=== PATIENT | female | born 1965 | race Caucasian/White ===

== ENCOUNTER 2020-03-26 18:22 | Inpatient (IN) | payer MEDICAID ==
[~2020-03-26] VITALS: Ht 157.5 cm; Wt 106.6 kg
[2020-03-26 18:22] VITALS: BP 82/33
[2020-03-26] MEDS ORDERED: NACL 0.9% 2,000 ML IV ONE (18:40)
--- NOTE | 2020-03-26 18:50 | NUR ---
EKG PERFORMED AT BEDSIDE
--- NOTE | 2020-03-26 18:53 | NUR ---
NOTED HER SUGAR OVER 400, SUDDEN LOSS OF SIGHT WITH GENERAL FATIGUE
[2020-03-26 19:06] LABS: BASOPHILS # (AUTO) 0.1 K/uL (0.00-0.22); BASOPHILS % (AUTO) 1.6 % (0.0-2.0); EOSINOPHILS # (AUTO) 0.1 K/uL (0-0.4); EOSINOPHILS % (AUTO) 0.7 % (0.0-4.0); HEMATOCRIT 44.2 % (36-48); HEMOGLOBIN 15.1 g/dL (12.0-16.0); LYMPHOCYTES # (AUTO) 2.7 K/uL (2.5-16.5); LYMPHOCYTES % (AUTO) 28.7 % (20.5-51.1); MEAN CORPUSCULAR HEMOGLOBIN 31 pg (27-31); MEAN CORPUSCULAR HGB CONC 34 g/dL (33-37); MEAN CORPUSCULAR VOLUME 90.2 fL (80-94); MONOCYTES # (AUTO) 0.7 K/uL (0.8-1.0); MONOCYTES % (AUTO) 6.9 % (1.7-9.3); NEUTROPHILS # (AUTO) 5.9 K/uL (1.8-7.7); NEUTROPHILS % (AUTO) 62.1 % (42.2-75.2); PLATELET COUNT (AUTO) 262 K/uL (140-450); RED CELL DISTRIBUTION WIDTH 14.7 % (11.6-13.7); WHITE BLOOD COUNT (AUTO) 9.5 K/uL (4.8-10.8)
--- NOTE | 2020-03-26 19:08 | NUR ---
RECEIVED REPORT FROM KRISTIN RN
--- NOTE | 2020-03-26 19:13 | NUR ---
PT RESTING QUIETLY, BOLUS OF IV FLUID STILL INFUSING. NO DISTRESS NOTED. PATIENT REMAINS ON MONITOR. WAITING FOR PATIENT TO GIVE URINE, UNABLE TO DO SO AT THIS TIME.
[2020-03-26 19:45] LABS: ANION GAP 23.7 (8-16); POTASSIUM 5.7 mmol/L (3.5-5.1); TOTAL BILIRUBIN 0.9 mg/dL (0.0-1.0)
[2020-03-26 20:06] LABS: CREATININE 4.2 mg/dL (0.6-1.3)
--- NOTE | 2020-03-26 20:09 | NUR ---
CRITICAL RESULTS CALLED FROM LAB - GLUCOSE 404, CREAT 4.24. MD HUSAIN AWARE
--- NOTE | 2020-03-26 20:24 | NUR ---
Observed pt with cough. Pt denied fever/chills, cough/congestion, CP/SOB, Dr Patterson made aware, CXR to be ordered.
[2020-03-26 20:25] LABS: APPEARANCE,URINE CLEAR (CLEAR); BILIRUBIN,URINE NEGATIVE (NEGATIVE); BLOOD, URINE NEGATIVE (NEGATIVE); COLOR,URINE YELLOW (YELLOW); LEUKOCYTE ESTERASE ,URINE NEGATIVE (NEGATIVE); NITRITE, URINE NEGATIVE (NEGATIVE); UGLUCOSE 2+ (NEGATIVE)
[2020-03-26] MEDS: NACL 0.9% 1,000 ML IV SCH (20:28)
[2020-03-26] MEDS ORDERED: ONDANSETRON 4 MG/2 ML VIAL IVP PRN (20:30)
[2020-03-26] MEDS ORDERED: DEXTROSE 50% 50 ML SYR IVP PRN (20:30)
[2020-03-26] MEDS ORDERED: ACETAMINOPHEN 325 MG TAB PO PRN (20:30)
[2020-03-26] MEDS ORDERED: SODIUM POLYSTYRENE 15 GM/60 ML UDBTL PO SCH (20:30)
[2020-03-26] MEDS ORDERED: HYDROcodone/APAP 7.5/325 MG 1 TAB PO PRN (20:30)
--- NOTE | 2020-03-26 20:43 | NUR ---
PT TO BE ADMITTED TO TELE UNIT, ADMITTING MD LOOMIS AT BEDSIDE
[2020-03-26] MEDS ORDERED: HYDR-39 PO (20:52)
[2020-03-26] MEDS ORDERED: INSU10SU6 SUBQ ×2 (20:52→21:49)
[2020-03-26] MEDS ORDERED: ASPI-1822 PO (20:52)
[2020-03-26] MEDS ORDERED: NOVR SUBQ (20:54)
[2020-03-26] MEDS: DOCUSATE SODIUM 100 MG GELCAP PO SCH (21:00)
[2020-03-26] MEDS: BLOOD GLUCOSE MONITORING 1 DEV DEV FS SCH (21:00)
[2020-03-26 21:11] LABS: PROTHROMBIN TIME 10.6 secs (10.8-13.4)
--- NOTE | 2020-03-26 21:25 | NUR ---
ADMITTED 54 YR OLD FR ER VIA [employer].A/A/O X4. PER PT C/O SUDDEN LOSS OF VISION & WEAKNESS.ORIENTED TO HER ENVIRONMENT,BED CONTROL,CALL LIGHT;WITHIN REACH.INSTRUCTED TO USE CALL LIGHT NEEDED & VERBALIZED UNDERSTANDING.
--- NOTE | 2020-03-26 21:25 | NUR ---
Patient will be admitted to care of DR VAZQUEZ. Admited to TELE. Will go to room 106A. Belongings list completed. Report to EUGENIO HOLDER.
[2020-03-26 21:43] LABS: BARBITURATE, URINE NEGATIVE ng/ml (NEG <=200); BENZODIAZEPINE, URINE NEGATIVE ng/mL (NEG <=200); CANNABINOID, URINE NEGATIVE ng/mL (NEG <=50); COCAINE, URINE NEGATIVE ng/mL (NEG <=300); OPIATE, URINE NEGATIVE ng/mL (NEG <=2000); PHENCYCLIDINE SCREEN,URINE NEGATIVE ng/mL (NEG <=25)
[2020-03-26 22:45] LABS: ANION GAP 16.1 (8-16); CARBON DIOXIDE 23.1 mmol/L (21-32); CREATININE 3.3 mg/dL (0.6-1.3); POTASSIUM 3.2 mmol/L (3.5-5.1)
--- NOTE | 2020-03-26 23:12 | NUR ---
DUE MEDS ADM.
[2020-03-26] MEDS: INSULIN LISPRO SLIDING SCALE 100 UNITS/ML VIAL SUBQ PRN (23:22)
--- NOTE | 2020-03-26 23:22 | NUR ---
HUMOLOG 6 UNITS ADM .FINGER STICK BLD SUGAR 262.
[2020-03-27] VITALS: BP_SYST 96; BP_SYST 98; BP_DIAS 47; BP_DIAS 50
--- NOTE | 2020-03-27 00:16 | NUR ---
IVF STARTED NS @ 100 ML/HR INFUSING WELL.
--- NOTE | 2020-03-27 02:00 | NUR ---
OOB TO THE BR PER PT HAS LOOSE STOOL & EXPLAINED BECAUSE OF THE MED SHE HAD.
--- NOTE | 2020-03-27 03:45 | NUR ---
IVF CLOGGED.IV INSERTED ON HER RIGHT HAND X2 WITH ANGIO #22.IVF INFUSING WELL.AFEBRILE.BP 92/45MM HG. TELE SHOWED SR.
[2020-03-27 04:00] VITALS: BP 92/45
--- NOTE | 2020-03-27 05:45 | NUR ---
OOB TO THE BR .
[2020-03-27 06:22] LABS: BASOPHILS % (AUTO) 0.4 % (0.0-2.0); EOSINOPHILS # (AUTO) 0.1 K/uL (0-0.4); EOSINOPHILS % (AUTO) 1.8 % (0.0-4.0); HEMATOCRIT 39.5 % (36-48); HEMOGLOBIN 13.3 g/dL (12.0-16.0); LYMPHOCYTES # (AUTO) 2.4 K/uL (2.5-16.5); LYMPHOCYTES % (AUTO) 36.5 % (20.5-51.1); MEAN CORPUSCULAR HEMOGLOBIN 31 pg (27-31); MEAN CORPUSCULAR HGB CONC 34 g/dL (33-37); MEAN CORPUSCULAR VOLUME 91.4 fL (80-94); MONOCYTES # (AUTO) 0.6 K/uL (0.8-1.0); MONOCYTES % (AUTO) 9.4 % (1.7-9.3); NEUTROPHILS # (AUTO) 3.4 K/uL (1.8-7.7); NEUTROPHILS % (AUTO) 51.9 % (42.2-75.2); PLATELET COUNT (AUTO) 211 K/uL (140-450); RED BLOOD CELL COUNT(AUTO) 4.32 MIL/uL (4.20-5.40); RED CELL DISTRIBUTION WIDTH 14.3 % (11.6-13.7); WHITE BLOOD COUNT (AUTO) 6.6 K/uL (4.8-10.8)
[2020-03-27] MEDS: BLOOD GLUCOSE MONITORING 1 DEV DEV FS SCH ×4 (06:28→21:06)
[2020-03-27] MEDS: NACL 0.9% 1,000 ML IV SCH ×3 (06:28→22:01)
--- NOTE | 2020-03-27 06:30 | NUR ---
FINGER STICK BLD SUGAR 247.HUMULOG 4 UNITS SUB Q ADM.
[2020-03-27] MEDS: INSULIN LISPRO SLIDING SCALE 100 UNITS/ML VIAL SUBQ PRN ×4 (06:32→21:12)
[2020-03-27 06:38] LABS: ANION GAP 15.3 (8-16); CREATININE 2.5 mg/dL (0.6-1.3); POTASSIUM 3.3 mmol/L (3.5-5.1)
[2020-03-27 06:49] LABS: CHOL/HDL RATIO 7.5 (1-4.5); MAGNESIUM 1.5 mg/dL (1.8-2.4); PHOSPHORUS 4.4 mg/dL (2.5-4.9)
--- NOTE | 2020-03-27 06:50 | NUR ---
ENDORSED IN NO ACUTE DISTRESS.SAFETY MAINTAINED.NOS/S OF HYPO/HYPERGLYCEMIA NOTED.CALL LIGHT WITHIN REACH.
--- NOTE | 2020-03-27 07:20 | NUR ---
RECEIVED REPORT FROM SURVEILLANCE SYSTEM MONITOR. AOX4. NO SIGNS OF DISTRESS NOTED. NO C/O PAIN, RESPIRATIONS EVEN AND UNLABORED. ON RA. TELE MONITOR ATTACHED. SKIN INTACT. IV ON RH 22G RUNNING NS 130CC/HR. INFUSING WELL. SAFETY MEASURES IN PLACE AND CALL LIGHT WITHIN REACH. PLAN OF CARE DISCUSSED. PT VERBALIZED UNDERSTANDING. WILL CONT TO MONITOR
[2020-03-27 08:00] VITALS: BP 106/62
[2020-03-27] MEDS: INSULIN NPH HUM/REG INSULIN HM 100 UNIT/ML 10 ML VIAL SUBQ SCH ×2 (09:00→21:10)
--- NOTE | 2020-03-27 09:00 | NUR ---
DUE MORNING MEEDS GIVEN. TOLERATED WELL
--- NOTE | 2020-03-27 09:01 | NUR ---
PATIENT HAS BEEN SCREENED AND CATEGORIZED HIGH NUTRITION RISK. PATIENT WILL BE SEEN WITHIN 1-2 DAYS OF ADMISSION. 03/27/20-03/28/[address]
[2020-03-27] MEDS: FAMOTIDINE 20 MG TAB PO SCH (09:19)
[2020-03-27] MEDS: DOCUSATE SODIUM 100 MG GELCAP PO SCH ×2 (09:19→21:20)
[2020-03-27] MEDS: ASPIRIN 81 MG TAB.CHEW PO SCH (09:19)
[2020-03-27] MEDS ORDERED: MAG SULF 2000 MG/WATER PREMIX 100 ML IV SCH (11:00)
--- NOTE | 2020-03-27 11:20 | NUR ---
MAG RIDER GIVEN ORDERED. INFUSING WELL. IN STABLE CONDITION
[2020-03-27 12:00] VITALS: BP 112/58
--- NOTE | 2020-03-27 13:30 | NUR ---
PT IN BED EATING LUNCH AFTER US WAS DONE.
--- NOTE | 2020-03-27 13:54 | NUR ---
03/27/20 RD INITIAL ASSESSMENT COMPLETED PLEASE REFER TO NUTRITION ASSESSMENT UNDER CARE ACTIVITY FOR ESTIMATED NUTRITIONAL NEEDS. 1. RECOMMEND CARDIAC AND CCHO 60GM DIET TOLERATED 2. RD PROVIDED NUTRITION EDUCATION FOR DIABETES AND LOWERING CHOLESTEROL 3. RD TO FOLLOW-UP 5-7 DAYS, LOW RISK NICK ARIAS, RD
--- NOTE | 2020-03-27 14:57 | NUR ---
DISCHARGE PLANNING: THIS IS A 54 Y/O FEMALE PATIENT FROM HOME, WHO CAME IN DUE TO HYPERGLYCEMIA. PAST MEDICAL HISTORY INCLUDE DIABTES, HTN, OBESITY AND FATTY LIVER. INITIAL DIAGNOSIS OF HYPERGLYCEMIA, ROSE AND HYPERKALEMIA. CURRENT LABS INCLUDE WBC 6.6, H/H 13.3/39.5, NA/K 137/3.3, BUN/CREA 23/2.5, MAG 1.5, GLU 404 ON ADMISSION AND TODAY 233. CXR ON ADMISSION SHOWED PROMINENT PULMONARY VASCULARITY. ABDOMINAL US SHOWED FATTY LIVER. NEPHRO CONSULT IN PLACE. DC PLAN PENDING ON PATIENT'S RESPONSE TO TREATMENT. Addendum: 03/28/20 at 1053 by Gretchen Mathews FOR DC HOME TODAY, NO NEEDS.
[2020-03-27 16:00] VITALS: BP 116/58
--- NOTE | 2020-03-27 16:20 | NUR ---
PT REPORTED THAT HER SON TESTED POSITIVE FOR COVID TODAY. PATIENT'S LAST CONTACT WITH SON WAS FEBRUARY 13. PT IS ASYMPTOMATIC. NO C/O SOB, NO SORE THROAT, AFEBRILE. RESIDENT MD MADE AWARE. NO NEW ORDERS
--- NOTE | 2020-03-27 16:30 | NUR ---
BLOOD SUGAR 257. COVERAGE GIVEN
--- NOTE | 2020-03-27 18:15 | NUR ---
IV DISLODGED WITH LUMEN INTACT. REINSERTED IV 22G ON LEFT HAND X1 ATTEMPT. RESTARTED IV, INFUSING WELL.
--- NOTE | 2020-03-27 19:08 | NUR ---
ENDORSED TO FIRE PILOT NURSE FOR CONTINUITY OF CARE. IN STABLE CONDITION
--- NOTE | 2020-03-27 19:09 | NUR ---
RECEIVED BEDSIDE SHIFT REPORT FROM DAYSHIFT NURSE FOR CONTINUITY OF CARE. PATIENT AWAKE AND ALERT IN BED NO SIGNS OF DISTRESS NOTED. RESPIRATION EVEN AND UNLABORED. IV PATEN AND INFUSING. TELE MONITOR ATTACHED AND CALL LIGHT WITHIN REACH. WILL CONTINUE TO MONITOR
[2020-03-27 20:00] VITALS: BP 110/57
--- NOTE | 2020-03-27 21:06 | NUR ---
OBTAINED A BEDSIDE BS CHECK OF 237. COVERAGE REQUIRED PER MD SLIDING SCALE.
--- NOTE | 2020-03-27 21:16 | NUR ---
ADMINISTERED 2100 MEDICATIONS TO PATIENT PER MD ORDER ALONG WITH INSULIN COVERAGE. EVENING SNACK PROVIDED TO PATIENT DURING ADMINISTRATION. PT TOLERATED WELL NO SIGNS OF DISTRESS NOTED WILL CONTINUE TO MONITOR
--- NOTE | 2020-03-27 23:55 | NUR ---
ROUNDING PT RESTING IN BED, EASILT AWAKENED TO SOUND. NO SIGNS OF DISTRESS NOTED. WILL CONTINUE TO MONITOR
[2020-03-28] VITALS: BP 104/63
--- NOTE | 2020-03-28 00:56 | NUR ---
ROUNDING, PT RESTING NO SIGNS OF DISTRESS NOTED TELE MONITOR ATTACHED AND CALL LIGHT WITHIN REACH WILL CONTINUE TO MONITOR
[2020-03-28] MEDS: NACL 0.9% 1,000 ML IV SCH ×2 (02:18→13:25)
--- NOTE | 2020-03-28 02:18 | NUR ---
ROUNDING, PT RESTING COMFORTABLY IN BED NO SIGNS OF DISTRESS NOTED. CHANGED IVF WHILE IN THE ROOM
[2020-03-28 04:00] VITALS: BP 136/71
--- NOTE | 2020-03-28 04:17 | NUR ---
OBTAINED 0400 VITALS. PT WAS AWAKE AND ALERT NO SIGNS OF DISTRESS NOTED. TELE MONITOR ATTACHED, BED IN LOW POSITION AND CALL LIGHT WITHIN REACH.
[2020-03-28] MEDS: BLOOD GLUCOSE MONITORING 1 DEV DEV FS SCH ×2 (05:48→11:30)
[2020-03-28] MEDS: INSULIN LISPRO SLIDING SCALE 100 UNITS/ML VIAL SUBQ PRN ×2 (05:52→13:19)
--- NOTE | 2020-03-28 05:52 | NUR ---
OBTAINED A MORNING BS OF 186. ADMINISTERED INSULIN PER MD SLIDING SCALE. PT TOLERATED WELL NO SIGNS OF DISTRESS NOTED. RESPIRATIONS EVEN AND UNLABORED ON RA. TELE MONITOR ATTACHED AND CALL LIGHT WITHIN REACH. WILL CONTINUE TO MONITOR
--- NOTE | 2020-03-28 07:10 | NUR ---
ENDORSED PATIENT TO DAYSHIFT NURSE FOR CONTINUITY OF CARE. PATIENT AWAKE IN BED NO SIGNS OF DISTRESS NOTED. TELE MONITOR ATTACHED, IV INFUSING WITHOUT DIFFICULTY AND CALL LIGHT WITHIN REACH. PATIENT IN STABLE CONDITION
--- NOTE | 2020-03-28 07:11 | NUR ---
RECEIVED REPORT FROM INFANTRY OPERATIONS SPECIALIST NURSE FOR CONTINUITY OF CARE. PT IS AA&OX4, IRISH SPEAKING. L HAND 22G IV IS PATENT AND INTACT, AND RUNNING PER ORDERS. RESPIRATIONS ARE EVEN AND UNLABORED, BREATHING TO RA. REVIEWED PLAN OF CARE. TELE MONITOR ATTACHED. SAFETY MEASURES IN PLACE, CALL LIGHT WITHIN REACH, BED IN LOW POSITION. NO DISTRESS NOTED. WILL CONTINUE TO MONITOR.
[2020-03-28 07:14] LABS: BASOPHILS # (AUTO) 0.1 K/uL (0.00-0.22); BASOPHILS % (AUTO) 1.1 % (0.0-2.0); EOSINOPHILS # (AUTO) 0.2 K/uL (0-0.4); EOSINOPHILS % (AUTO) 3.2 % (0.0-4.0); HEMATOCRIT 38.8 % (36-48); LYMPHOCYTES # (AUTO) 1.7 K/uL (2.5-16.5); LYMPHOCYTES % (AUTO) 35.3 % (20.5-51.1); MEAN CORPUSCULAR HEMOGLOBIN 31 pg (27-31); MEAN CORPUSCULAR HGB CONC 34 g/dL (33-37); MEAN CORPUSCULAR VOLUME 92.5 fL (80-94); MONOCYTES # (AUTO) 0.5 K/uL (0.8-1.0); MONOCYTES % (AUTO) 9.5 % (1.7-9.3); NEUTROPHILS # (AUTO) 2.5 K/uL (1.8-7.7); NEUTROPHILS % (AUTO) 50.9 % (42.2-75.2); PLATELET COUNT (AUTO) 198 K/uL (140-450); RED BLOOD CELL COUNT(AUTO) 4.19 MIL/uL (4.20-5.40); RED CELL DISTRIBUTION WIDTH 14.6 % (11.6-13.7); WHITE BLOOD COUNT (AUTO) 4.8 K/uL (4.8-10.8)
[2020-03-28] MEDS ORDERED: HUMSLIDE SUBQ ×3 (07:56→13:03)
[2020-03-28] MEDS ORDERED: ATOR20TA40 PO ×2 (07:56→12:59)
[2020-03-28 08:00] VITALS: BP 121/75
[2020-03-28] MEDS: DOCUSATE SODIUM 100 MG GELCAP PO SCH (08:52)
[2020-03-28] MEDS: ASPIRIN 81 MG TAB.CHEW PO SCH (08:52)
[2020-03-28] MEDS: FAMOTIDINE 20 MG TAB PO SCH (08:52)
[2020-03-28] MEDS ORDERED: ATORVASTATIN 20 MG TAB PO SCH (09:00)
[2020-03-28] MEDS: INSULIN NPH HUM/REG INSULIN HM 100 UNIT/ML 10 ML VIAL SUBQ SCH (09:02)
--- NOTE | 2020-03-28 09:07 | NUR ---
SCHEDULED MEDICATIONS GIVEN. MEDICATION EDUCATION PROVIDED, WITH PT VERBALIZING UNDERSTANDING. PT TOLERATED PO MEDS WILL NO DISTRESS NOTED. SAFETY MEASURES IN PLACE. WILL CONTINUE TO MONITOR.
[2020-03-28 10:10] LABS: ALBUMIN 2.6 g/dL (3.4-5.0); CARBON DIOXIDE 23.8 mmol/L (21-32); CREATININE 1.2 mg/dL (0.6-1.3); MAGNESIUM 2.3 mg/dL (1.8-2.4); PHOSPHORUS 3.5 mg/dL (2.5-4.9); POTASSIUM 3.8 mmol/L (3.5-5.1); TOTAL BILIRUBIN 0.5 mg/dL (0.0-1.0)
--- NOTE | 2020-03-28 11:10 | NUR ---
BEEHIVE KILN SUPERVISOR NOTE: Basic Screen: Yes High Risk DC Screen Beckett: SUDEEP HARRINGTON [place] Relationship: SON Pre-Admission Living Arrangements: Lives Alone Prior ADL Independent Current Home Health Name/Tel: N/A Current DME/02 Name/Tel: N/A Current Hospice Name/Tel: N/A Current Dialysis Name/Tel: N/A Healthcare Decision Maker: Patient Advance Directive No Physician Orders for Life Sustaining Treatment Form No Patient/Family Have Educational Needs No Information Taught: Community Resources Teaching Tools: Verbal Factors Affecting Learning: None Tentative Discharge Plan/Destination: No Needs Identified Will require assistance post discharge: No Referred to Accounting Reconciliation Clerk: No Tentative Discharge Plan Summary: PATIENT IS A 54-YEAR-OLD FEMALE ADMITTED FOR HYPERGLYCEMIA AND ROSE. PATIENT HAS PMHX OF DYSLIPEDEMIA, DIABETES, AND HYPERTENSION. PATIENT WAS ADMITTED FROM HOME WHERE SHE LIVES ALONE. SW CONTACTED PATIENT'S SON, SUDEEP HARRINGTON [phone]. PER SUDEEP, PATIENT IS INDEPENDENT WITH ALL ADLS AND HAS NO HISTORY OF SUBSTANCE ABUSE OR MENTAL HEALTH. TENTATIVE DISCHARGE PLAN IS FOR PATIENT TO RETURN HOME. NO FURTHER NEEDS IDENTIFIED. Signature: MAYNOR ELLIS Date: March 28, 2020 Time: 11:08
[2020-03-28 12:00] VITALS: BP 121/75
[2020-03-28] MEDS ORDERED: HYDR-39 PO (12:59)
[2020-03-28] MEDS ORDERED: ASPI-1822 PO (12:59)
[2020-03-28] MEDS ORDERED: INSU10SU6 SUBQ (12:59)
--- NOTE | 2020-03-28 13:21 | NUR ---
6 UNITS COVERAGE GIVEN FOR BGL: 260. NO DISTRESS NOTED. PT IS SITTING UP IN CHAIR TALKING. WILL CONTINUE TO MONITOR.
--- NOTE | 2020-03-28 14:25 | NUR ---
PT'S DISCHARGE INSTRUCTIONS WERE GIVEN, AND EXPLAINED, WITH PT VERBALIZING UNDERSTANDING. INSTRUCTIONS ALSO GIVEN OVER THE PHONE TO THE PT'S NIECE. PNEUMOCOCCAL VACCINE ADMINISTERED IN RT ARM. ARM BAND, TELE MONITOR, AND IV REMOVED, WITH IV CATHETER INTACT. ALL OF THE PT'S BELONGINGS, INCLUDING DISCHARGE PACKET, ARE IN HER POSSESSION. PT'S NIECE ARRIVED TO SOUND EDITOR PT. PT IS AMBULATORY, AND WAS ESCORTED OUT TO LOBBY WEARING A MASK. PT IN STABLE CONDITION.
[2020-03-28] MEDS ORDERED: PNEUMOCOCCAL VACCINE 23 MCG/0.5 ML VIAL IMVAC SCH (14:50)
--- NOTE | 2020-03-28 15:03 | NUR ---
RESIDENT IS AT BEDSIDE SPEAKING WITH PT. NO DISTRESS NOTED. TELE MONITOR ATTACHED. WILL CONTINUE TO MONITOR. Addendum: 03/28/20 at 1504 by Thelma Gaspar RN *DONN PT*
== END 2020-03-28 15:00 | disposition home or self-care (01) | DRG 420 ==
LOC: MED 18:22 → MTU 20:28
PROVIDERS: ADMIT General Practice; ATTEND General Practice
DX: E11.65 Type 2 diabetes mellitus with hyperglycemia (principal); N17.0 Acute kidney failure with tubular necrosis; E43 Unspecified severe protein-calorie malnutrition; E11.21 Type 2 diabetes mellitus with diabetic nephropathy; K76.0 Fatty (change of) liver, not elsewhere classified; E86.0 Dehydration; E87.1 Hypo-osmolality and hyponatremia; Z68.41 Body mass index [BMI] 40.0-44.9, adult; E66.01 Morbid (severe) obesity due to excess calories; E83.42 Hypomagnesemia; F41.9 Anxiety disorder, unspecified; E78.5 Hyperlipidemia, unspecified; I10 Essential (primary) hypertension; Z82.49 Family history of ischemic heart disease and other diseases of the circulatory system; E87.5 Hyperkalemia
CPT/HCPCS: 36415; 71045; 76700; 80048; 80053; 80305; 81003; 82948; 83036; 83735; 83880; 84100; 84443; 84484; 85025; 85610; 85730; 87081; 90732; 93005; 96360; 96361; 99285; J1644; J1815; J3475; J7030; Q0092

== ENCOUNTER 2021-05-01 12:21 | Emergency (ER) | payer SELFPAY ==
[~2021-05-01] VITALS: Ht 153.7 cm; Wt 110.3 kg
[~2021-05-01 12:21] MED LIST: ASPI-1822 PO; ATOR20TA40 PO; HUMSLIDE SUBQ; HYDR-39 PO; INSU10SU6 SUBQ
[2021-05-01 12:23] VITALS: BP 126/73
--- NOTE | 2021-05-01 12:36 | NUR ---
PATIENT AMBULATED TO BED 7
--- NOTE | 2021-05-01 12:58 | NUR ---
55 Y/O MALE C/O N/V, WEAKNESS, HERRERA, BLURRED VISION, BODY ACHES X 5 DAYS. BLOOD SUGAR 366 AT THIS TIME. ABD SOFT NON TENDER. ACTIVE BOWEL SOUNDS. LUNG SOUNDS CLEAR TO AUSCULTATION. VSS. SKIN WARM AND DRY. PMH: DM, HTN, HLD
--- NOTE | 2021-05-01 13:24 | NUR ---
Dr. Canada is evaluating the patient at bedside.
[2021-05-01] MEDS ORDERED: METOCLOPRAMIDE 10 MG/2 ML INJ VIAL IVP ONE (13:30)
[2021-05-01] MEDS ORDERED: ACETAMINOPHEN EXTRA STRENGTH 500 MG TAB PO ONE (13:30)
[2021-05-01] MEDS ORDERED: diphenhydrAMINE 50 MG/ML VIAL IVP ONE (13:30)
[2021-05-01] MEDS ORDERED: NACL 0.9% 500 ML IV STA (13:31)
[2021-05-01 13:43] LABS: BASOPHILS # (AUTO) 0.1 K/uL (0.00-0.22); BASOPHILS % (AUTO) 0.8 % (0.0-2.0); EOSINOPHILS # (AUTO) 0.1 K/uL (0-0.4); EOSINOPHILS % (AUTO) 0.6 % (0.0-4.0); HEMATOCRIT 45.9 % (36-48); HEMOGLOBIN 15.7 g/dL (12.0-16.0); LYMPHOCYTES # (AUTO) 2.5 K/uL (2.5-16.5); LYMPHOCYTES % (AUTO) 25.9 % (20.5-51.1); MEAN CORPUSCULAR HEMOGLOBIN 32 pg (27-31); MEAN CORPUSCULAR HGB CONC 34 g/dL (33-37); MEAN CORPUSCULAR VOLUME 94.4 fL (80-94); MONOCYTES # (AUTO) 0.9 K/uL (0.8-1.0); MONOCYTES % (AUTO) 8.9 % (1.7-9.3); NEUTROPHILS # (AUTO) 6.1 K/uL (1.8-7.7); NEUTROPHILS % (AUTO) 63.8 % (42.2-75.2); PLATELET COUNT (AUTO) 222 K/uL (140-450); RED BLOOD CELL COUNT(AUTO) 4.86 MIL/uL (4.20-5.40); RED CELL DISTRIBUTION WIDTH 14.7 % (11.6-13.7); WHITE BLOOD COUNT (AUTO) 9.6 K/uL (4.8-10.8)
[2021-05-01 13:55] LABS: ANION GAP 15.7 (8-16); CARBON DIOXIDE 24.1 mmol/L (21-32); CREATININE 1.7 mg/dL (0.6-1.3); POTASSIUM 3.8 mmol/L (3.5-5.1)
--- NOTE | 2021-05-01 13:55 | NUR ---
PT TAKEN TO CT SCAN VIA W/C
--- NOTE | 2021-05-01 14:00 | NUR ---
Patient returned from CT scan. RN reevaluating the patient at bedside.
[2021-05-01 14:01] LABS: ALBUMIN 3.2 g/dL (3.4-5.0)
--- NOTE | 2021-05-01 14:36 | NUR ---
all terrain vehicle technician at bedside.
--- NOTE | 2021-05-01 14:40 | NUR ---
Dr. Canada is reevaluating the patient at bedside.
--- NOTE | 2021-05-01 14:59 | NUR ---
PT AMBULATED TO RESTROOM, STEADY GAIT
[2021-05-01] MEDS ORDERED: KETOROLAC 15 MG/ML VIAL IVP ONE (15:10)
[2021-05-01] MEDS ORDERED: NACL 0.9% 1,000 ML IV ONE (15:10)
[2021-05-01 15:26] LABS: APPEARANCE,URINE CLEAR (CLEAR); BILIRUBIN,URINE 2+ (NEGATIVE); BLOOD, URINE NEGATIVE (NEGATIVE); COLOR,URINE YELLOW (YELLOW); LEUKOCYTE ESTERASE ,URINE NEGATIVE (NEGATIVE); NITRITE, URINE NEGATIVE (NEGATIVE); PH,URINE 5.5 (5.0-9.0); UGLUCOSE 3+ (NEGATIVE)
--- NOTE | 2021-05-01 15:57 | NUR ---
Note tiara in EDM - 05/01/21 at 1559 by [email or web address] Patient discharged with v/s stable. Written and verbal after care instructions given and explained to parent/guardian. Parent/Guardian verbalized understanding of instructions. Ambulatory with steady gait. All questions addressed prior to discharge. ID band removed. Parent/Guardian advised to follow up with PMD. Rx of MOTRIN given. Parent/Guardian educated on indication of medication including possible reaction and side effects. Opportunity to ask questions provided and answered.
--- NOTE | 2021-05-01 16:49 | NUR ---
LAB AT BEDSIDE
[2021-05-01 17:48] VITALS: BP 100/64
--- NOTE | 2021-05-01 17:48 | NUR ---
Patient discharged with v/s stable. Written and verbal after care instructions given and explained. Patient alert, oriented and verbalized understanding of instructions. Ambulatory with steady gait. All questions addressed prior to discharge. ID band removed. Patient advised to follow up with PMD. Opportunity to ask questions provided and answered.
== END 2021-05-01 17:48 | disposition home or self-care (01) ==
LOC: MED 12:21
DX: M79.10 Myalgia, unspecified site (principal); R42 Dizziness and giddiness; R51.9 Headache, unspecified; E11.9 Type 2 diabetes mellitus without complications; I11.9 Hypertensive heart disease without heart failure; E78.00 Pure hypercholesterolemia, unspecified; Z79.899 Other long term (current) drug therapy
CPT/HCPCS: 36415; 70450; 71045; 80053; 81003; 81025; 83605; 84443; 84484; 85025; 87040; 87086; 93005; 96361; 96374; 96375; 99285; J1200; J1885; J2765

== ENCOUNTER 2021-12-23 18:23 | Inpatient (IN) | payer OTHER, SELFPAY ==
[~2021-12-23] VITALS: Ht 157.5 cm; Wt 112.0 kg
[~2021-12-23 18:23] MED LIST changes: +HYDR-2853 PO; -HYDR-39 PO
[2021-12-23 18:32] VITALS: BP 135/87
--- NOTE | 2021-12-23 18:38 | NUR ---
BIB WHEELCHAIR TO ER BED 2
--- NOTE | 2021-12-23 19:13 | NUR ---
COW BUYER AT PT BEDSIDE.
--- NOTE | 2021-12-23 19:16 | NUR ---
56 Y/O FEMALE C/O COUGH, FEVER, MYALGIA, SOB X1DAY. PT TESTED COVID + YESTERDAY. DENIES N/V. LABORED BREATHING NOTED, DIMINISHED LUNG SOUNDS TO BILATERAL BASES, SPO2 88% ON RA. HR 131. PMH: DM, HTN NKA
--- NOTE | 2021-12-23 19:16 | NUR ---
COLLECTED BRYCE PATEL A&B GAVE TO WOOD BOATBUILDER.
[2021-12-23 19:28] LABS: BASOPHILS % (AUTO) 0.3 % (0.0-2.0); HEMOGLOBIN 15.1 g/dL (12.0-16.0); LYMPHOCYTES # (AUTO) 1.7 K/uL (2.5-16.5); MEAN CORPUSCULAR HEMOGLOBIN 31 pg (27-31); MEAN CORPUSCULAR HGB CONC 34 g/dL (33-37); MEAN CORPUSCULAR VOLUME 91.4 fL (80-94); MONOCYTES # (AUTO) 0.8 K/uL (0.8-1.0); MONOCYTES % (AUTO) 7.6 % (1.7-9.3); NEUTROPHILS % (AUTO) 76.1 % (42.2-75.2); PLATELET COUNT (AUTO) 191 K/uL (140-450); RED BLOOD CELL COUNT(AUTO) 4.82 MIL/uL (4.20-5.40); RED CELL DISTRIBUTION WIDTH 14.2 % (11.6-13.7); WHITE BLOOD COUNT (AUTO) 10.5 K/uL (4.8-10.8)
--- NOTE | 2021-12-23 19:38 | NUR ---
GAVE REPORT TO GALLO RANGEL. TRANSFER OF CARE AT THIS TIME.
--- NOTE | 2021-12-23 19:50 | NUR ---
assumed patient care, pt here for SOB. Recently diagnosed of COVId-19, on assesment pt is aox4, ambulatory, maintaining saturation of 92-95% on 5L NC. Awaiting for admit orders. No active complaints at this time.
[2021-12-23 19:59] LABS: ALBUMIN 2.4 g/dL (3.4-5.0); ANION GAP 15.1 (8-16); CARBON DIOXIDE 27.2 mmol/L (21-32); CREATININE 0.8 mg/dL (0.6-1.3); POTASSIUM 3.3 mmol/L (3.5-5.1); TOTAL BILIRUBIN 0.6 mg/dL (0.0-1.0)
--- NOTE | 2021-12-23 21:05 | NUR ---
Pt x/o headache, ED MD made aware and gacve verbal order tylenol 1gram PO.
[2021-12-23] MEDS ORDERED: ACETAMINOPHEN EXTRA STRENGTH 500 MG TAB PO ONE (22:00)
[2021-12-23] MEDS ORDERED: MAGNESIUM OXIDE 400 MG TAB PO PRN (22:25)
[2021-12-23] MEDS ORDERED: MAG SULF 2000 MG/WATER PREMIX 50 ML IV PRN (22:25)
[2021-12-23] MEDS ORDERED: POTASSIUM CHLORIDE 10 MEQ TABER PO PRN (22:25)
[2021-12-23] MEDS ORDERED: ONDANSETRON 4 MG/2 ML VIAL IVP PRN (22:25)
[2021-12-23] MEDS ORDERED: AZITHROMYCIN 500 MG in DEXTROSE 5% 250 ML IV SCH (22:25)
[2021-12-23] MEDS ORDERED: HYDROcodone/APAP 5/325 MG 1 TAB TAB PO PRN (22:25)
[2021-12-23] MEDS ORDERED: MORPHINE SULFATE 4 MG/ML SYR IVP PRN (22:25)
[2021-12-23] MEDS ORDERED: KCL 20 MEQ/WATER INJ PREMIX 200 ML IV PRN (22:25)
[2021-12-23] MEDS ORDERED: ACETAMINOPHEN 325 MG TAB PO PRN (22:25)
[2021-12-23] MEDS ORDERED: DEXTROSE 50% 50 ML SYR IVP PRN (22:30)
--- NOTE | 2021-12-23 22:50 | NUR ---
COLLECTED CONSTRUCTION REPRESENTATIVE SWAB FOR COVID PCR AND RAPID TEST. SENT TO LAB.
[2021-12-23] MEDS ORDERED: cefTRIAXone 1,000 MG VIAL ONE (23:00)
[2021-12-23] MEDS ORDERED: AZITHROMYCIN 500 MG INJ VIAL IV ONE (23:01)
--- NOTE | 2021-12-23 23:10 | NUR ---
NEW IV LINE STARTED ON LEFT FOREARM G20, IV ANTIBIOTICS STARTED.
[2021-12-24 01:50] VITALS: BP 134/92
--- NOTE | 2021-12-24 01:50 | NUR ---
Admitted from ER TO TELEMETRY UNIT, with chief complaint of SOB, COUGH, FEVER, N/V, DIARRHEA, BODY WEAKNESS FOR 4 DAYS NOW. 56 y/o ,Female, Cooperative, AWAKE, A/OX4, OBESE. RESPIRATION EVEN AND UNLABORED. ON 02 AT 3 LITERS VIA N/C, 02 SATURATION 96%. WITH INTERMITTENT COUGHING, WITH MINIMAL WHITE PHLEGM AT TIMES. ABLE TO AMBULATE BY HERSELF TO THE BR. HEAD TO TOE ASSESSMENT DONE WITH CHARGE NURSE JOSE RAFAEL, NOTED DISCOLORATION, SCALY ROUND AREA ON THE LEFT KNEE AND SCATTERED RASH ON THE LOWER EXTREMITY. NO OPEN WOUNDS NOTED. DENIES PAIN 0/10.oriented to call light, bed, phone,television, bathroom, smoking policy,visiting hours, procedures, ID bracelet on. Belongings list checked.
--- NOTE | 2021-12-24 02:30 | NUR ---
AMBULATED TO BR TO VOID, GAIT STEADY. GETS SHORT OF BREATH UPON EXERTION.
--- NOTE | 2021-12-24 03:30 | NUR ---
SLEEPING COMFORTABLY IN BED. RESPIRATION EVEN AND UNLABORED. NO SOB NOTED.
[2021-12-24 04:00] VITALS: BP 129/86
--- NOTE | 2021-12-24 05:30 | NUR ---
STILL SLEEPING ON HER BACK. RESPIRATION EVEN AND UNLABORED.
--- NOTE | 2021-12-24 07:00 | NUR ---
CONDITION REMAIN STABLE. WILL ENDORSE TO AM SHIFT NURSE FOR CONTINUITY OF CARE.
[2021-12-24] MEDS: BLOOD GLUCOSE MONITORING 1 DEV DEV FS SCH ×4 (07:18→22:54)
[2021-12-24] MEDS: INSULIN LISPRO SLIDING SCALE 100 UNITS/ML VIAL SUBQ PRN ×4 (07:20→22:59)
[2021-12-24 08:00] VITALS: BP 132/85
[2021-12-24 08:15] LABS: BASOPHILS % (AUTO) 0.1 % (0.0-2.0); HEMATOCRIT 41.3 % (36-48); HEMOGLOBIN 14.2 g/dL (12.0-16.0); LYMPHOCYTES # (AUTO) 1.9 K/uL (2.5-16.5); LYMPHOCYTES % (AUTO) 22.3 % (20.5-51.1); MEAN CORPUSCULAR HEMOGLOBIN 31 pg (27-31); MEAN CORPUSCULAR HGB CONC 34 g/dL (33-37); MEAN CORPUSCULAR VOLUME 91.3 fL (80-94); MONOCYTES # (AUTO) 0.6 K/uL (0.8-1.0); MONOCYTES % (AUTO) 6.9 % (1.7-9.3); NEUTROPHILS % (AUTO) 70.7 % (42.2-75.2); PLATELET COUNT (AUTO) 189 K/uL (140-450); RED BLOOD CELL COUNT(AUTO) 4.52 MIL/uL (4.20-5.40); RED CELL DISTRIBUTION WIDTH 14.4 % (11.6-13.7); WHITE BLOOD COUNT (AUTO) 8.5 K/uL (4.8-10.8)
[2021-12-24 08:24] LABS: ALBUMIN 2.2 g/dL (3.4-5.0); ANION GAP 12.9 (8-16); CARBON DIOXIDE 28.7 mmol/L (21-32); CREATININE 0.6 mg/dL (0.6-1.3); MAGNESIUM 2.4 mg/dL (1.8-2.4); POTASSIUM 3.6 mmol/L (3.5-5.1); TOTAL BILIRUBIN 0.4 mg/dL (0.0-1.0)
[2021-12-24] MEDS ORDERED: DOCUSATE SODIUM 100 MG GELCAP PO SCH (09:00)
[2021-12-24] MEDS: DEXAMETHASONE 4 MG/ML VIAL IVP SCH (09:47)
--- NOTE | 2021-12-24 09:47 | NUR ---
SCHEDULED MEDICATIONS DUE GIVEN. WILL CONTINUE TO MONITOR.
[2021-12-24 12:00] VITALS: BP 134/90
--- NOTE | 2021-12-24 13:01 | NUR ---
SCHEDULED MEDICATIONS DUE GIVEN. WILL CONTINUE TO MONITOR.
[2021-12-24 16:00] VITALS: BP 136/92
[2021-12-24] MEDS ORDERED: remdesivir COMMUNICATION ORDER 1 EA MISC MC PRN (16:15)
--- NOTE | 2021-12-24 16:34 | NUR ---
PATIENT HAS BEEN SCREENED AND CATEGORIZED MODERATE NUTRITION RISK. PATIENT WILL BE SEEN WITHIN 3-5 DAYS OF ADMISSION. DANIEL RUSSELL RD
[2021-12-24] MEDS ORDERED: remdesivir CLINICAL MONITORING 1 EA MISC MC PRN (16:55)
[2021-12-24] MEDS ORDERED: REMDESIVIR. 200 MG in NACL 0.9% 100 ML IV SCH (18:00)
--- NOTE | 2021-12-24 18:28 | NUR ---
SCHEDULED MEDICATIONS DUE GIVEN. WILL CONTINUE TO MONITOR.
--- NOTE | 2021-12-24 19:28 | NUR ---
GAVE REPORT TO IT TECHNICAL ARCHITECT NURSE FOR CONTINUITY OF CARE. PATIENT IN STABLE CONDITION.
[2021-12-24 20:00] VITALS: BP 153/91
[2021-12-24] MEDS: INSULIN NPH HUM/REG INSULIN HM 100 UNIT/ML 10 ML VIAL SUBQ SCH (21:00)
[2021-12-24] MEDS: ENOXAPARIN 40 MG/0.4 ML SYR SUBQ SCH (22:47)
[2021-12-25] VITALS: BP 151/88
[2021-12-25] MEDS: BLOOD GLUCOSE MONITORING 1 DEV DEV FS SCH ×4 (06:51→21:00)
[2021-12-25] MEDS: INSULIN LISPRO SLIDING SCALE 100 UNITS/ML VIAL SUBQ PRN ×3 (07:05→16:28)
--- NOTE | 2021-12-25 07:30 | NUR ---
RECEIVED PT CARE AND REPORT FROM [facility] NURSE. PT RESTING IN BED WITH EYES CLOSED. NO VISIBLE S/S OF DISTRESS, DISCOMFORT, PAIN OR SOB. CALL LIGHT WITHIN REACH. ALL NEEDS MET AT THIS TIME.
[2021-12-25 07:37] LABS: HEMATOCRIT 42.4 % (36-48); HEMOGLOBIN 14.4 g/dL (12.0-16.0); LYMPHOCYTES # (AUTO) 1.5 K/uL (2.5-16.5); LYMPHOCYTES % (AUTO) 9.6 % (20.5-51.1); MEAN CORPUSCULAR HEMOGLOBIN 31 pg (27-31); MEAN CORPUSCULAR HGB CONC 34 g/dL (33-37); MEAN CORPUSCULAR VOLUME 92.1 fL (80-94); MONOCYTES # (AUTO) 0.7 K/uL (0.8-1.0); MONOCYTES % (AUTO) 4.6 % (1.7-9.3); NEUTROPHILS # (AUTO) 13.4 K/uL (1.8-7.7); NEUTROPHILS % (AUTO) 85.8 % (42.2-75.2); PLATELET COUNT (AUTO) 197 K/uL (140-450); RED CELL DISTRIBUTION WIDTH 14.1 % (11.6-13.7); WHITE BLOOD COUNT (AUTO) 15.7 K/uL (4.8-10.8)
[2021-12-25 08:00] VITALS: BP 136/87
[2021-12-25 08:16] LABS: ALBUMIN 2.2 g/dL (3.4-5.0); ANION GAP 9.1 (8-16); CARBON DIOXIDE 33.6 mmol/L (21-32); CREATININE 0.7 mg/dL (0.6-1.3); MAGNESIUM 2.5 mg/dL (1.8-2.4); POTASSIUM 4.7 mmol/L (3.5-5.1); TOTAL BILIRUBIN 0.4 mg/dL (0.0-1.0)
[2021-12-25] MEDS: ATORVASTATIN 20 MG TAB PO SCH (09:17)
[2021-12-25] MEDS: lisinopriL 20 MG TAB PO SCH (09:17)
[2021-12-25] MEDS: DEXAMETHASONE 4 MG/ML VIAL IVP SCH (09:18)
[2021-12-25] MEDS: ENOXAPARIN 40 MG/0.4 ML SYR SUBQ SCH (09:20)
[2021-12-25] MEDS: INSULIN NPH HUM/REG INSULIN HM 100 UNIT/ML 10 ML VIAL SUBQ SCH (09:21)
--- NOTE | 2021-12-25 10:07 | NUR ---
REPORTED POSITIVE BLOOD CULTURE FOR GRAM POSITIVE COCCI IN PAIRS IN CLUSTERS TO DR. GRIMES.
[2021-12-25] MEDS ORDERED: ALBUTEROL HFA MDI 90 MCG/ACTUATION 8 GM INH PRN (11:25)
[2021-12-25 12:00] VITALS: BP 136/76
[2021-12-25 16:00] VITALS: BP 142/73
[2021-12-25] MEDS: REMDESIVIR. 100 MG in NACL 0.9% 100 ML IV SCH (17:24)
--- NOTE | 2021-12-25 18:51 | NUR ---
PT SITTING IN CHAIR NEXT TO BED. A&OX4, WATCHING TV. RECEIVING 5L O2 VIA NC. NO VISIBLE S/S OF DISTRESS OR DISCOMFORT. DENIES ANY PAIN OR SOB. CALL LIGHT WITHIN REACH. ALL NEEDS MET AT THIS TIME. WILL ENDORSE TO NOC SHIFT.
[2021-12-25 20:00] VITALS: BP 124/79
[2021-12-25] MEDS ORDERED: baricitinib COMM. ORDER 1 EA MISC MC PRN (22:40)
[2021-12-26] MEDS: INSULIN NPH HUM/REG INSULIN HM 100 UNIT/ML 10 ML VIAL SUBQ SCH ×3 (01:19→22:18)
[2021-12-26] MEDS: ENOXAPARIN 40 MG/0.4 ML SYR SUBQ SCH ×3 (01:21→22:18)
[2021-12-26] MEDS: INSULIN LISPRO SLIDING SCALE 100 UNITS/ML VIAL SUBQ PRN ×3 (01:25→22:20)
--- NOTE | 2021-12-26 01:44 | NUR ---
Recheck Blood Sugar at this time = 94. Will continue to monitor for low Blood Sugar.
[2021-12-26] MEDS: BLOOD GLUCOSE MONITORING 1 DEV DEV FS SCH ×4 (07:05→22:05)
[2021-12-26 07:29] LABS: BASOPHILS % (AUTO) 0.1 % (0.0-2.0); HEMATOCRIT 41.5 % (36-48); HEMOGLOBIN 14.1 g/dL (12.0-16.0); LYMPHOCYTES # (AUTO) 1.7 K/uL (2.5-16.5); MEAN CORPUSCULAR HEMOGLOBIN 32 pg (27-31); MEAN CORPUSCULAR HGB CONC 34 g/dL (33-37); MEAN CORPUSCULAR VOLUME 92.4 fL (80-94); MONOCYTES # (AUTO) 0.6 K/uL (0.8-1.0); MONOCYTES % (AUTO) 4.4 % (1.7-9.3); NEUTROPHILS # (AUTO) 10.7 K/uL (1.8-7.7); NEUTROPHILS % (AUTO) 82.5 % (42.2-75.2); PLATELET COUNT (AUTO) 224 K/uL (140-450); RED BLOOD CELL COUNT(AUTO) 4.49 MIL/uL (4.20-5.40); RED CELL DISTRIBUTION WIDTH 14.2 % (11.6-13.7)
[2021-12-26 07:44] LABS: ALBUMIN 1.9 g/dL (3.4-5.0); ANION GAP 10.8 (8-16); CREATININE 0.7 mg/dL (0.6-1.3); MAGNESIUM 2.6 mg/dL (1.8-2.4); POTASSIUM 3.8 mmol/L (3.5-5.1); TOTAL BILIRUBIN 0.4 mg/dL (0.0-1.0)
[2021-12-26 08:00] VITALS: BP 146/82
[2021-12-26] MEDS: ATORVASTATIN 20 MG TAB PO SCH (09:34)
[2021-12-26] MEDS: BARICITINIB 2 MG TAB PO SCH (09:34)
[2021-12-26] MEDS: DEXAMETHASONE 4 MG/ML VIAL IVP SCH (09:34)
[2021-12-26] MEDS: lisinopriL 20 MG TAB PO SCH (09:34)
[2021-12-26] MEDS ORDERED: BUDE1AER IH (11:58)
[2021-12-26] MEDS ORDERED: ALBU0.0912 IH (11:58)
[2021-12-26 12:00] VITALS: BP 141/88
[2021-12-26] MEDS: REMDESIVIR. 100 MG in NACL 0.9% 100 ML IV SCH (17:42)
[2021-12-26 20:00] VITALS: BP 122/75
--- NOTE | 2021-12-26 22:00 | NUR ---
TRU DM P.O GIVEN ORDERED .
[2021-12-27] VITALS: BP 134/66
--- NOTE | 2021-12-27 | NUR ---
rounds , no complain made . call [facility] within reach .
[2021-12-27 04:00] VITALS: BP 130/82
--- NOTE | 2021-12-27 04:00 | NUR ---
ROUNDS , NO S/SX OF DISTRESS , WILL CONT. TO MONITOR - O2 SAT WNL .CALL LIGHT WITHIN REACH .
--- NOTE | 2021-12-27 06:00 | NUR ---
SLEEPING , AWAKEABLE , CALL LIGHT WITHIN REACH .
[2021-12-27] MEDS: INSULIN LISPRO SLIDING SCALE 100 UNITS/ML VIAL SUBQ PRN ×3 (06:17→18:53)
[2021-12-27] MEDS: BLOOD GLUCOSE MONITORING 1 DEV DEV FS SCH ×4 (06:19→20:38)
[2021-12-27 06:53] LABS: BASOPHILS % (AUTO) 0.1 % (0.0-2.0); HEMATOCRIT 41.9 % (36-48); LYMPHOCYTES # (AUTO) 2.2 K/uL (2.5-16.5); LYMPHOCYTES % (AUTO) 19.6 % (20.5-51.1); MEAN CORPUSCULAR HEMOGLOBIN 31 pg (27-31); MEAN CORPUSCULAR HGB CONC 33 g/dL (33-37); MEAN CORPUSCULAR VOLUME 92.5 fL (80-94); MONOCYTES # (AUTO) 0.5 K/uL (0.8-1.0); MONOCYTES % (AUTO) 4.4 % (1.7-9.3); NEUTROPHILS # (AUTO) 8.3 K/uL (1.8-7.7); NEUTROPHILS % (AUTO) 75.9 % (42.2-75.2); PLATELET COUNT (AUTO) 245 K/uL (140-450); RED BLOOD CELL COUNT(AUTO) 4.53 MIL/uL (4.20-5.40); RED CELL DISTRIBUTION WIDTH 14.1 % (11.6-13.7)
--- NOTE | 2021-12-27 07:22 | NUR ---
AWAKE - ENDORSED - PT STABLE .
--- NOTE | 2021-12-27 07:28 | NUR ---
RECEIVED PT FROM NIGHT RN, PT IS AWAKE AND ALERT AND ON O2 10L VIA OXYMIZER, IV LINES NOTED ON THE LFA G. 20 AND ON THE MARGIE G. 20 BOTH ON SALINE LOCKS, SIDE RAILS ARE UP AND CALL LIGHT WITHIN REACH, PT IS ON DROPLET ISOLATION FOR COVID POSITIVE, NO SIGN OF DISTRESS NOTED AND WILL CONTINUE TO MONITOR PT.
[2021-12-27 07:45] LABS: ANION GAP 9.2 (8-16); CARBON DIOXIDE 31.6 mmol/L (21-32); CREATININE 0.8 mg/dL (0.6-1.3); MAGNESIUM 2.6 mg/dL (1.8-2.4); POTASSIUM 4.8 mmol/L (3.5-5.1); TOTAL BILIRUBIN 0.3 mg/dL (0.0-1.0)
[2021-12-27 08:00] VITALS: BP 144/86
[2021-12-27] MEDS: ENOXAPARIN 40 MG/0.4 ML SYR SUBQ SCH ×2 (09:46→20:44)
[2021-12-27] MEDS: BARICITINIB 2 MG TAB PO SCH (09:50)
[2021-12-27] MEDS: ATORVASTATIN 20 MG TAB PO SCH (09:50)
[2021-12-27] MEDS: lisinopriL 20 MG TAB PO SCH (09:50)
[2021-12-27] MEDS: DEXAMETHASONE 4 MG/ML VIAL IVP SCH (09:51)
[2021-12-27] MEDS: INSULIN NPH HUM/REG INSULIN HM 100 UNIT/ML 10 ML VIAL SUBQ SCH ×2 (09:57→20:41)
--- NOTE | 2021-12-27 09:57 | NUR ---
PT WAS GIVEN THE SCHEDULED AM MEDICATIONS NOW, TOLERATED.
[2021-12-27] MEDS: guaiFENesin DM 200/20 MG-10 ML 10 ML UDC PO PRN ×2 (10:00→20:45)
[2021-12-27 12:00] VITALS: BP 149/67
[2021-12-27 16:00] VITALS: BP 111/87
[2021-12-27] MEDS: REMDESIVIR. 100 MG in NACL 0.9% 100 ML IV SCH (16:40)
--- NOTE | 2021-12-27 19:35 | NUR ---
RECEIVED PT FROM AM NURSE FOR CONTINUITY OF CARE. PT ON OXIMIZER TOLERATED WELL. LFA IV G20 PATENT. ALL SAFETY MEasures I N PLACE,CALL LIGHT WITHIN EASY REACH.
[2021-12-27 20:00] VITALS: BP 154/83
--- NOTE | 2021-12-27 21:00 | NUR ---
ALL SCHEDULED MEDICATIONS GIVEN .VITAL SIGNS WNL.O2 SATURATION AT 95%.
--- NOTE | 2021-12-27 22:00 | NUR ---
PT BRODY Lindo AT THIS TIME. NO DISTRESS NOTED.
[2021-12-28] VITALS: BP 131/81
--- NOTE | 2021-12-28 | NUR ---
PT SLEEPING ,O2 SAT 97%.NO SIGNS OF DISTRESS NOTED. CALL LIGHT WITHIN EASY REACH,ALL SAFETY MEASURES IN PLACE
--- NOTE | 2021-12-28 02:00 | NUR ---
PATIENT STILL ASLEEP. NO SIGNS OF DISTRES NOTED.
[2021-12-28 04:00] VITALS: BP 134/86
--- NOTE | 2021-12-28 04:00 | NUR ---
VITAL SIGNS STABLE. PT RESTING IN BED. DENIES DIFFICULTY OF BREATHING AND PAIN AT THIS TIME. ALL PRECAUTIONS IN PLACE.O2 SAT AT 93%.
--- NOTE | 2021-12-28 04:00 | NUR ---
PATIENT DENIES ANY PAIN O2 SAT 94% .NO DISTRESS NOTED. ALL SAFETY PRECAUTIONS IN PLACE.CALL LIGHT WITHIN EASY REACH.
--- NOTE | 2021-12-28 06:30 | NUR ---
PATIENT IS AWAKE,NO SOB NOTED.BLD GLUCOSE CHECKED,NO INSULIN COVERAGE.
[2021-12-28] MEDS: BLOOD GLUCOSE MONITORING 1 DEV DEV FS SCH ×4 (06:42→21:51)
--- NOTE | 2021-12-28 06:47 | NUR ---
PT IS STABLE. NO ACUTE EVENTS THROUGHOUT THE NIGHT.NO S/SX OF DISTRESS AT THIS TIME. DENIES ANY PAIN. ALL NEEDS MET. ALL SAFETY PRECAUTIONS IN PLACE.WILL CONTINUE TO MONITOR.
[2021-12-28 07:25] LABS: BASOPHILS % (AUTO) 0.1 % (0.0-2.0); EOSINOPHILS % (AUTO) 0.1 % (0.0-4.0); HEMATOCRIT 43.8 % (36-48); HEMOGLOBIN 14.8 g/dL (12.0-16.0); LYMPHOCYTES # (AUTO) 1.6 K/uL (2.5-16.5); LYMPHOCYTES % (AUTO) 18.4 % (20.5-51.1); MEAN CORPUSCULAR HEMOGLOBIN 31 pg (27-31); MEAN CORPUSCULAR HGB CONC 34 g/dL (33-37); MONOCYTES # (AUTO) 0.3 K/uL (0.8-1.0); MONOCYTES % (AUTO) 3.9 % (1.7-9.3); NEUTROPHILS # (AUTO) 6.8 K/uL (1.8-7.7); NEUTROPHILS % (AUTO) 77.5 % (42.2-75.2); PLATELET COUNT (AUTO) 261 K/uL (140-450); RED BLOOD CELL COUNT(AUTO) 4.76 MIL/uL (4.20-5.40); RED CELL DISTRIBUTION WIDTH 14.4 % (11.6-13.7); WHITE BLOOD COUNT (AUTO) 8.7 K/uL (4.8-10.8)
--- NOTE | 2021-12-28 07:30 | NUR ---
RECEIVED REPORT FROM SUPPLIER QUALITY NURSE FOR CONTINUITY OF CARE. PT IS AWAKE AND ALERT. A&OX4. ON 10 L O2 OXIMIZER WITH BREATHING UNLABORED. ON TELE MONITOR. AMBULATORY INDEPENDENTLY. SKIN IS WARM, DRY, AND INTACT. IVS ARE IN THE LEFT UA AND LEFT FA 20 GAUGE. PT IS STABLE. PLAN OF CARE DISCUSSED.
[2021-12-28 07:32] LABS: CARBON DIOXIDE 28.1 mmol/L (21-32); CREATININE 0.6 mg/dL (0.6-1.3); MAGNESIUM 2.4 mg/dL (1.8-2.4); POTASSIUM 4.1 mmol/L (3.5-5.1); TOTAL BILIRUBIN 0.4 mg/dL (0.0-1.0)
--- NOTE | 2021-12-28 07:40 | NUR ---
ENDORSED TO AM SHIFT NURSE FOR CONTINUITY OF CARE. PT IS STABLE.
[2021-12-28 08:00] VITALS: BP 144/91
--- NOTE | 2021-12-28 09:32 | NUR ---
(12/28/21) RD INITIAL ASSESSMENT COMPLETED PLEASE REFER TO NUTRITION ASSESSMENT UNDER CARE ACTIVITY FOR ESTIMATED NUTRITIONAL NEEDS. RD RECOMMENDATIONS: 1. CONTINUE ON CCHO 60 GM DIET TOLERATED 2. RDN ADDED DIET HEALTH SHAKES 4-OZ WITH EACH MEAL TID. THIS WILL PROVIDE ADDITIONAL 600 KCAL AND 21 GM PROTEIN TO HELP MEET EST NEEDS. 3. RD WILL F/U 3-5 DAYS; MODERATE RISK. SAMMIE LANE MS, RDN
[2021-12-28] MEDS: lisinopriL 20 MG TAB PO SCH (09:49)
[2021-12-28] MEDS: DEXAMETHASONE 4 MG/ML VIAL IVP SCH (09:49)
[2021-12-28] MEDS: BARICITINIB 2 MG TAB PO SCH (09:49)
[2021-12-28] MEDS: ATORVASTATIN 20 MG TAB PO SCH (09:50)
[2021-12-28] MEDS: INSULIN NPH HUM/REG INSULIN HM 100 UNIT/ML 10 ML VIAL SUBQ SCH ×2 (09:50→21:00)
[2021-12-28] MEDS: ENOXAPARIN 40 MG/0.4 ML SYR SUBQ SCH ×2 (09:52→21:00)
--- NOTE | 2021-12-28 10:00 | NUR ---
ROUNDED ON PT. SHE STATED SHE WAS OKAY. NO RESP DISTRESS NOTED ON 10L O2 OXIMIZER. O2 SAT IS 96%. IV'S ARE INTACT. WILL CONTINUE TO MONITOR.
[2021-12-28 12:00] VITALS: BP 131/66
[2021-12-28] MEDS: INSULIN LISPRO SLIDING SCALE 100 UNITS/ML VIAL SUBQ PRN ×3 (12:20→22:41)
--- NOTE | 2021-12-28 13:00 | NUR ---
PT IS STABLE. ATE LUNCH WITH GOOD APPETITE. TITRATED O2 TO 8L OXIMIZER. O2 SAT IS 94%. MONITORED FOR 15 MIN AND NO RESP DISTRESS NOTED. WILL CONTINUE TO MONITOR.
[2021-12-28 16:00] VITALS: BP 127/80
--- NOTE | 2021-12-28 16:00 | NUR ---
PT IS AWAKE AND ALERT. MAKES NEEDS KNOWN. NO DISTRESS AT THIS TIME. ON 8L O2 OXIMIZER. WILL CONTINUE TO MONITOR.
[2021-12-28] MEDS: REMDESIVIR. 100 MG in NACL 0.9% 100 ML IV SCH (17:35)
--- NOTE | 2021-12-28 18:39 | NUR ---
CALLED TO BEDSIDE BY PT. SALINE LOCKED IV. REMDESIVIR IS COMPLETE. IV IS FLUSHING WELL. PT IS STABLE. DENIES PAIN OR RESP. DISTRESS.
--- NOTE | 2021-12-28 19:00 | NUR ---
IV ON LEFT FA INFILTRATED. REMOVED IV AND APPLIED COOLING MEASURES.
--- NOTE | 2021-12-28 19:27 | NUR ---
ENDORSED PT TO SAP GATHERER NURSE FOR CONTINUITY OF CARE. PT IS STABLE. PLAN OF CARE DISCUSSED.
--- NOTE | 2021-12-28 19:30 | NUR ---
RECEIVED PT FROM AM NURSE FOR CONTINUITY OF CARE.AWAKE, ALERT AND ORIENTED. PT ON O2 10L VIA NC OXYMIZER TOLERATED WELL. MARGIE G20 PATENT. ALL SAFETY MEASURES IN PLACE,CALL LIGHT WITHIN EASY REACH.WILL CONTINUE TO MONITOR.
[2021-12-28 20:00] VITALS: BP 128/82
[2021-12-28] MEDS: guaiFENesin DM 200/20 MG-10 ML 10 ML UDC PO PRN (21:00)
--- NOTE | 2021-12-28 21:30 | NUR ---
SCHEDULED MEDICATIONS GIVEN. BLOOD SUGAR WAS 277. 6 UNITS INSULIN COVERAGE GIVEN.PT TOLERATED WELL. NO S/SX OF DISTRESS NOTED. CALL LIGHT WITHIN REACH.WILL CONTINUE TO MONITOR.
[2021-12-29] VITALS: BP 133/77
--- NOTE | 2021-12-29 | NUR ---
VITAL SIGNS STABLE. ,O2 SAT 97%.NO SIGNS OF DISTRESS NOTED. CALL LIGHT WITHIN EASY REACH,ALL SAFETY MEASURES IN PLACE.
--- NOTE | 2021-12-29 02:14 | NUR ---
PT SLEEPING ,O2 SAT 98%.NO SIGNS OF DISTRESS NOTED. CALL LIGHT WITHIN EASY REACH,ALL SAFETY MEASURES IN PLACE
[2021-12-29 04:00] VITALS: BP 114/80
--- NOTE | 2021-12-29 06:23 | NUR ---
PT IS STABLE. NO ACUTE EVENTS THROUGHOUT THE NIGHT.NO S/SX OF DISTRESS OF THE MOMENT. DENIES PAIN. ALL NEEDS ATTENDED. ALL SAFETY MEASURES IN PLACE. CALL LIGHT WITHIN REACH. WILL ENDORSE TO AM SHIFT NURSE.
[2021-12-29] MEDS: BLOOD GLUCOSE MONITORING 1 DEV DEV FS SCH ×4 (07:22→21:00)
--- NOTE | 2021-12-29 07:22 | NUR ---
PT ENDORSED TO AM SHIFT NURSE FOR CONTINUITY OF CARE. PT IS STABLE.
--- NOTE | 2021-12-29 07:30 | NUR ---
RECEIVED REPORT FROM FARM TECHNICIAN NURSE FOR CONTINUITY OF CARE. PT ASLEEP IN BED. BREATHING SYMMETRICAL. ON O2 10L VIA OXIMIZER. FLACC 0. CALL LIGHT PLACED WITHIN REACH. ALL SAFETY MEASURES IN PLACE.
[2021-12-29 08:00] VITALS: BP 142/75
[2021-12-29] MEDS: BARICITINIB 2 MG TAB PO SCH (09:12)
[2021-12-29] MEDS: ATORVASTATIN 20 MG TAB PO SCH (09:12)
[2021-12-29] MEDS: lisinopriL 20 MG TAB PO SCH (09:13)
[2021-12-29] MEDS: DEXAMETHASONE 4 MG/ML VIAL IVP SCH (09:14)
[2021-12-29] MEDS: ENOXAPARIN 40 MG/0.4 ML SYR SUBQ SCH ×2 (09:29→22:18)
[2021-12-29] MEDS: INSULIN NPH HUM/REG INSULIN HM 100 UNIT/ML 10 ML VIAL SUBQ SCH ×2 (09:29→22:21)
--- NOTE | 2021-12-29 09:31 | NUR ---
SCHEDULED AM MEDICATIONS GIVEN PER MD ORDER.
--- NOTE | 2021-12-29 10:40 | NUR ---
PT C/O PAIN ON MARGIE PERIPHERAL IV LINE WHEN FLUSHING. CHANGED IV SITE TO RIGHT HAND, DENIES PAIN, NO S/SX OF INFILTRATION NOTED.
[2021-12-29 12:00] VITALS: BP 138/81
[2021-12-29] MEDS: INSULIN LISPRO SLIDING SCALE 100 UNITS/ML VIAL SUBQ PRN ×3 (12:48→22:29)
--- NOTE | 2021-12-29 13:50 | NUR ---
PT UP IN CHAIR. BREATHING SYMMETRICAL. ON O2 7L OXIMIZER. DENIES PAIN AT THIS TIME. CALL LIGHT WITHIN REACH. ALL SAFETY MEASURES IN PLACE. WILL CONTINUE TO MONITOR.
[2021-12-29 16:00] VITALS: BP 149/83
--- NOTE | 2021-12-29 17:09 | NUR ---
ACCUCHECK DONE, INSULIN GIVEN PER SLIDING SCALE. ALSO EDUCATED PT ON HOW TO USE INCENTIVE SPIROMETER AND IMPORTANCE. WILL CONTINUE TO MONITOR.
--- NOTE | 2021-12-29 19:50 | NUR ---
ENDORSED PT TO PROOF SORTER NURSE. PT IN STABLE CONDITION
[2021-12-29 20:00] VITALS: BP 110/60
[2021-12-29] MEDS: guaiFENesin DM 200/20 MG-10 ML 10 ML UDC PO PRN (22:45)
[2021-12-30] MEDS: BLOOD GLUCOSE MONITORING 1 DEV DEV FS SCH ×4 (07:38→21:00)
--- NOTE | 2021-12-30 07:50 | NUR ---
RECEIVED REPORT FROM REMOTE RECRUITER NURSE FOR CONTINUITY OF CARE. PT ASLEEP IN BED. ON O2 OXIMIZER AT 7L. BREATHING SYMMETRICAL. FLACC 0. WITH R HAND 24G, SALINE LOCK. CALL LIGHT PLACED WITHIN REACH. ALL SAFETY MEASURES IN PLACE.
[2021-12-30 08:00] VITALS: BP 153/81
[2021-12-30] MEDS: ENOXAPARIN 40 MG/0.4 ML SYR SUBQ SCH ×2 (09:00→21:49)
[2021-12-30] MEDS: INSULIN NPH HUM/REG INSULIN HM 100 UNIT/ML 10 ML VIAL SUBQ SCH ×2 (09:36→21:00)
[2021-12-30] MEDS: ATORVASTATIN 20 MG TAB PO SCH (09:40)
[2021-12-30] MEDS: lisinopriL 20 MG TAB PO SCH (09:40)
[2021-12-30] MEDS: BARICITINIB 2 MG TAB PO SCH (09:40)
--- NOTE | 2021-12-30 09:40 | NUR ---
SCHEDULED AM MEDICATIONS GIVEN PER MD ORDER.
[2021-12-30] MEDS: DEXAMETHASONE 4 MG/ML VIAL IVP SCH (09:41)
--- NOTE | 2021-12-30 10:37 | NUR ---
PT C/O PAIN ON RIGHT HAND PERIPHERAL IV WHEN FLUSHING. CHANGED IV LINE TO RIGHT FOREARM 24G, NO S/SX OF INFILTRATION, DENIES PAIN. WILL CONTINUE TO MONITOR
--- NOTE | 2021-12-30 11:06 | NUR ---
PT VERBALIZED WANTING TO TALK TO MD REGARDING PLAN/DISCHARGE. DR VARELA MADE AWARE.
[2021-12-30 12:00] VITALS: BP 108/70
[2021-12-30] MEDS: INSULIN LISPRO SLIDING SCALE 100 UNITS/ML VIAL SUBQ PRN ×3 (12:13→22:02)
--- NOTE | 2021-12-30 14:46 | NUR ---
PT ASLEEP IN BED. ON O2 OXIMIZER AT 4L. BREATHING SYMMETRICAL. FLACC 0. WILL CONTINUE TO MONITOR.
[2021-12-30 16:00] VITALS: BP 126/73
--- NOTE | 2021-12-30 17:30 | NUR ---
PT AWAKE IN BED. BREATHING SYMMETRICAL. ON O2 4L OXIMIZER. DENIES PAIN OR DISCOMFORT. CALL LIGHT WITHIN REACH. WILL CONTINUE TO MONITOR. ALL SAFETY MEASURES IN PLACE.
[2021-12-30 20:00] VITALS: BP 129/70
--- NOTE | 2021-12-30 20:09 | NUR ---
GAVE REPORT TO JEAN PAUL CLARK RN FOR THIS PT.
[2021-12-31] VITALS: BP 119/60
[2021-12-31 03:14] VITALS: BP 120/63
[2021-12-31] MEDS: BLOOD GLUCOSE MONITORING 1 DEV DEV FS SCH ×4 (07:03→20:27)
--- NOTE | 2021-12-31 07:30 | NUR ---
RECEIVED REPORT FROM SENIOR PORTFOLIO ANALYST NURSE FOR CONTINUITY OF CARE, POC DISCUSSED. PT IS STABLE IN BED ON 4L OXIMIZER. ALL SAFETY MEASURES IN PLACE, CALL LIGHT WITHIN REACH. WILL CONTINUE TO MONITOR.
[2021-12-31 08:00] VITALS: BP 114/58
[2021-12-31] MEDS: ENOXAPARIN 40 MG/0.4 ML SYR SUBQ SCH ×2 (09:38→20:16)
[2021-12-31] MEDS: BARICITINIB 2 MG TAB PO SCH (09:39)
[2021-12-31] MEDS: ATORVASTATIN 20 MG TAB PO SCH (09:40)
[2021-12-31] MEDS: DEXAMETHASONE 4 MG/ML VIAL IVP SCH (09:40)
[2021-12-31] MEDS: lisinopriL 20 MG TAB PO SCH (09:40)
[2021-12-31] MEDS: INSULIN NPH HUM/REG INSULIN HM 100 UNIT/ML 10 ML VIAL SUBQ SCH ×2 (09:47→20:28)
--- NOTE | 2021-12-31 10:09 | NUR ---
FELIPE MEDICATION ADMINISTERED PER MD ORDER, PT TOLERATED ADMINISTRATION. PT EDUCATION PROVIDED. PT REPORTS ALL NEEDS ARE CURRENTLY MET. CALL LIGHT WITHIN REACH. WILL CONTINUE TO MONITOR.
--- NOTE | 2021-12-31 11:12 | NUR ---
DC PLANNING: PAKO SPOKE WITH THE PATIENTS CHUCK HATFIELD BY PHONE REGARDING DCP. THE PATIENT ADMITTED THROUGH THE ER WITH COVID /S/S, STARTED ON O2 AND COVID PROTOCOL MEDICATIONS. WEANED TO 4L O2 VIA OXYMIZER, THE TERMITE TECHNICIAN DOCUMENTS THAT HE WANTS O2 AT 3L BEFORE SHE'S READY FOR DC. PAKO SPOKE WITH DR VARELA REGARD DCP, ASKED FOR PHYSICAL THERAPY EVALUATION AND HOME O2, CM WILL SPEAK WITH [facility] REGARDING CONTRACTED AGENCIES. THE PATIENT LIVES IN A SINGLE STORY HOUSE WITH HER COUSIN AND COUSINS FAMILY WHO ASSIST HER WITH NEEDS. SHE IS [place]DEP[place]ENT WITH AMBULATION AND ADL'S, BUT HAS PAIN RELATED TO A FALL OVER A YEAR AGO AND IS PENDING SHOULDER SURGERY. HAS NO DME OR H/O HOME HEALTH. SHE WILL DISCHARGE TO HER SON MELISSA [place] IN [place], ADDRESS IS [address] [place] [address], [phone], [place], [id number], PHONE NUMBER [phone]. CM ENDORSED THAT HOME HEALTH AND O2 WILL BE PROVIDED BY [employer] CONTRACTED AGENCIES, SHE STATES THAT SHE AND FAMILY ARE IN AGREEMENT WITH THIS PLAN. PAKO WILL FOLLOW. Addendum: 12/31/21 at 1217 by Carol Ann Whitaker CM Amended: Links added. Addendum: 01/01/22 at 1501 by Carol Ann Whitaker CM DC PLANNING: ORDERS FAXED TO [facility], CONCENTRATOR AND PORTABLE WILL BE DELIVERED TO HER SON MELISSA [place] IN [place]. PAKO SPOKE WITH MELISSA TO LET HIM KNOW THAT [facility] WILL CALL HIM REGARDING TIME FOR DELIVERY. CM WILL FOLLOW. Addendum: 01/02/22 at 1240 by Carol Ann Whitaker CM DC PLANNING: CM SPOKE WITH THE PATIENTS SON MELISSA BY PHONE, ENDORSED THAT THE PATIENT IS NOW AT 2L O2 NC AND MIGHT BE DC'D TODAY IF STABLE. MELISSA IS GOING TO BALANCE TRUER THE O2 PORTABLE AND CONCENTRATOR FROM THE [facility] FOR [facility] AT AROUND 2 PM TODAY, CM CONFIRMED THIS WITH ALEX AT [facility] ([phone]). CM WILL FOLLOW.
--- NOTE | 2021-12-31 11:13 | NUR ---
SPO2 CHECKED ON ROOM AIR SPO2 83%. PT NOT IN ANY DISTRESS BUT RETURNED TO 3L OXYMIZER.
[2021-12-31 12:00] VITALS: BP 119/65
[2021-12-31] MEDS: INSULIN LISPRO SLIDING SCALE 100 UNITS/ML VIAL SUBQ PRN ×3 (12:25→20:28)
[2021-12-31 16:00] VITALS: BP 139/70
--- NOTE | 2021-12-31 18:55 | NUR ---
PT REMAINED STABLE THROUGHOUT THE SHIFT, ALL NEEDS HAVE BEEN MET. PT WILL BE ENDORSED TO MOLDING UTILITY WORKER NURSE
[2021-12-31 20:54] VITALS: BP 129/69
[2022-01-01 03:25] VITALS: BP 131/72
[2022-01-01] MEDS: BLOOD GLUCOSE MONITORING 1 DEV DEV FS SCH ×4 (06:16→21:11)
--- NOTE | 2022-01-01 07:30 | NUR ---
RECEIVED REPORT FROM AUTOMOTIVE WINDOW TINTER NURSE. PT STABLE
[2022-01-01 08:00] VITALS: BP 152/83
[2022-01-01] MEDS: ENOXAPARIN 40 MG/0.4 ML SYR SUBQ SCH ×2 (09:00→21:20)
[2022-01-01] MEDS: INSULIN NPH HUM/REG INSULIN HM 100 UNIT/ML 10 ML VIAL SUBQ SCH ×2 (09:41→21:18)
[2022-01-01] MEDS: DEXAMETHASONE 4 MG/ML VIAL IVP SCH (09:41)
[2022-01-01] MEDS: ATORVASTATIN 20 MG TAB PO SCH (09:52)
[2022-01-01] MEDS: lisinopriL 20 MG TAB PO SCH (09:52)
[2022-01-01] MEDS: BARICITINIB 2 MG TAB PO SCH (09:52)
--- NOTE | 2022-01-01 10:20 | NUR ---
PT BROUGHT TEA AND BOOKS FROM FAMILY
[2022-01-01 12:00] VITALS: BP 152/83
--- NOTE | 2022-01-01 13:39 | NUR ---
BG 259, PATIENT JUST FINISHED LUNCH. NO COVERAGE GIVEN AT THIS TIME. WILL REASSESS. NO S/S OF DISTRESS. CALL LIGHT IN REACH. ALL SAFETY MEASURES IN PLACE
--- NOTE | 2022-01-01 14:57 | NUR ---
01/01/22 RD FOLLOW UP COMPLETED PLEASE REFER TO NUTRITION ASSESSMENT UNDER CARE ACTIVITY FOR ESTIMATED NUTRITIONAL NEEDS. 1. CONTINUE ON [facility] 45 GM DIET TOLERATED 2. DISCONTINUE HEALTH SHAKES D/T IMPROVED % PO INTAKE AND INCREASED BLOOD SUGAR 3. PROVIDED NUTRITION EDUCATION HANDOUTS FOR CARB COUNTING FOR DIABETES 4. MONITOR BLOOD GLUCOSE LEVELS 5. RD WILL F/U 3-5 DAYS; MODERATE RISK. DANIEL RUSSELL RD
[2022-01-01 16:00] VITALS: BP 135/74
[2022-01-01] MEDS: INSULIN LISPRO SLIDING SCALE 100 UNITS/ML VIAL SUBQ PRN ×2 (17:00→21:19)
--- NOTE | 2022-01-01 17:00 | NUR ---
PT TRANSFERRED TO [facility]
--- NOTE | 2022-01-01 19:11 | NUR ---
ENDORSED PT TO GENERAL WORKER NURSE
--- NOTE | 2022-01-01 19:12 | NUR ---
RECEIVED PATIENT REPORT FROM AM SHIFT NURSE FOR CONTINUITY OF CARE. PATIENT IN BED AWAKE, ALERT AND VERBALLY RESPONSIVE. ABLE TO MAKE NEEDS KNOWN. ON 2L OXIMIZER. ALL SAFETY MEASURES IN PLACE. CALL LIGHT WITHIN REACH. WILL CONTINUE WITH CURRENT PLAN OF CARE.
[2022-01-01 20:00] VITALS: BP 121/68
--- NOTE | 2022-01-01 21:21 | NUR ---
ADMINISTERED ALL DUE MEDICATIONS PER MD ORDER. TOLERATED WELL. NO ASE NOTED.
--- NOTE | 2022-01-01 23:25 | NUR ---
CHECKED ON PATIENT. PATIENT ASLEEP WITH HOB SLIGHTLY ELEVATED. NO SOB NOTED. ALL SAFETY MEASURES IN PLACE. CALL LIGHT WITHIN REACH. WILL CONTINUE TO MONITOR.
--- NOTE | 2022-01-02 01:25 | NUR ---
PATIENT ASLEEP. VISIBLE CHEST RISING AND FALLING. CALL LIGHT WITHIN REACH. WILL CONTINUE TO MONITOR.
--- NOTE | 2022-01-02 03:58 | NUR ---
ROUNDED ON PATIENT. SLEEPING WELL. RESPIRATION EVEN AND UNLABORED WITH NO SOB NOTED. CALL LIGHT WITHIN REACH. WILL CONTINUE TO MONITOR.
[2022-01-02 04:00] VITALS: BP 146/82
--- NOTE | 2022-01-02 05:58 | NUR ---
PATIENT IS AWAKE. BREATHING EVEN AND UNLABORED WITH NO SOB NOTED. ON 2L O2 VIA N/C. NOT IN DISTRESS. DENIES ANY PAIN OR DISCOMFORT AT THIS TIME. CALL LIGHT WITHIN REACH. WILL CONTINUE TO MONITOR.
[2022-01-02] MEDS: BLOOD GLUCOSE MONITORING 1 DEV DEV FS SCH ×3 (06:42→16:24)
[2022-01-02] MEDS: INSULIN LISPRO SLIDING SCALE 100 UNITS/ML VIAL SUBQ PRN ×3 (06:44→16:44)
--- NOTE | 2022-01-02 07:25 | NUR ---
ENDORSED PATIENT REPORT TO AM SHIFT NURSE FOR CONTINUITY OF CARE. PATIENT IS STABLE.
--- NOTE | 2022-01-02 07:32 | NUR ---
RECEIVED PT FROM NIGHT RN, PT IS AWAKE AND ALERT AND ORIENTED, [place] SPEAKING ON O2 2L NC, ON ISOLATION FOR COVID POSITIVE, SEATED ON THE BED WITH SIDE RAILS UP AND CALL LIGHT WITHIN REACH, IV LINE NOTED ON THE RFA G. 24 ON SALINE LOCK, NO SIGN OF DISTRESS NOTED AND WILL CONTINUE TO MONITOR PT.
[2022-01-02 08:00] VITALS: BP 146/80
[2022-01-02] MEDS: ENOXAPARIN 40 MG/0.4 ML SYR SUBQ SCH (09:23)
[2022-01-02] MEDS: lisinopriL 20 MG TAB PO SCH (09:28)
[2022-01-02] MEDS: ATORVASTATIN 20 MG TAB PO SCH (09:28)
[2022-01-02] MEDS: DEXAMETHASONE 4 MG/ML VIAL IVP SCH (09:28)
[2022-01-02] MEDS: BARICITINIB 2 MG TAB PO SCH (09:28)
--- NOTE | 2022-01-02 09:28 | NUR ---
PT WAS GIVEN THE SCHEDULED AM MEDIATIONS NOW, PARAMETERS CHECKED AND WILL CONTINUE TO MONITOR PT.
[2022-01-02] MEDS: INSULIN NPH HUM/REG INSULIN HM 100 UNIT/ML 10 ML VIAL SUBQ SCH (09:58)
--- NOTE | 2022-01-02 09:58 | NUR ---
PT WAS GIVEN HUMULIN 70/30 INSULIN FOR BLOOD GLUCOSE OF 169.
--- NOTE | 2022-01-02 12:26 | NUR ---
PT WAS GIVEN INSULIN 2 UNITS ON THE LEFT DELTOID FOR BLOOD GLUCOSE OF 189.
--- NOTE | 2022-01-02 12:55 | NUR ---
EVALUATED PATIENT FOR OXYGEN FOR HOME USE. SHE IS CURRENTLY ON 2L, 28%. NASAL CANNULA. PLACED PATIENT ON ROOM AIR FOR 5 MIN. HER OXYGEN SATURATION DROPPED FROM 91% TO THE MID 80S IN LESS THEN 5 MINUTES.
[2022-01-02] MEDS ORDERED: DEC4 PO (12:59)
[2022-01-02 16:00] VITALS: BP 140/86
--- NOTE | 2022-01-02 17:03 | NUR ---
DISCHARGED PT TO HOME WITH HOME O2 ACCOMPANIED BY SON, DISCHARGED TEACHINGS AND INSTRUCTIONS GIVEN TO PT AND VERBALIZED UNDERSTANDING. IV LINE AND ARM BAND REMOVED.
== END 2022-01-02 17:14 | disposition home health service (06) | DRG 137 ==
LOC: MED 18:23 → MTU 22:26
PROVIDERS: ADMIT Internal Medicine; ATTEND Internal Medicine
PROC: XW033E5 Introduction of Remdesivir Anti-infective into Peripheral Vein, Percutaneous Approach, New Technology Group 5 (ICD-10-PCS; principal; 2021-12-24)
DX: U07.1 COVID-19 (principal); J96.01 Acute respiratory failure with hypoxia; J12.82 Pneumonia due to coronavirus disease 2019; R65.11 Systemic inflammatory response syndrome (SIRS) of non-infectious origin with acute organ dysfunction; E11.9 Type 2 diabetes mellitus without complications; E78.5 Hyperlipidemia, unspecified; E66.01 Morbid (severe) obesity due to excess calories; I10 Essential (primary) hypertension; Z79.82 Long term (current) use of aspirin; Z79.4 Long term (current) use of insulin; Z79.899 Other long term (current) drug therapy; Z68.42 Body mass index [BMI] 45.0-49.9, adult; Z83.3 Family history of diabetes mellitus; Z82.49 Family history of ischemic heart disease and other diseases of the circulatory system
CPT/HCPCS: 36415; 71045; 80053; 82948; 83605; 83735; 83880; 84484; 85025; 86140; 87040; 87081; 93005; 96365; 96366; 96367; 97116; 97163-GP; 99291; J0456; J0696; J1100; J1644; J1650; J1815; J3535; U0003